=== PATIENT | female | born 1940 | race African-American/Black ===

== ENCOUNTER 2017-01-27 17:09 | Observation (INO) | payer MEDICARE ==
--- NOTE | 2017-01-27 17:55 | PDOC ---
History of Present Illness - General Chief Complaint: Lightheaded Stated Complaint: FATIGUE Time Seen by Provider: 01/27/17 17:31 - History of Present Illness Initial Comments: 01/27/17 18:08 The patient is a 76 year old female with a history of HTN, right breast CA, DM, asthma, and anemia who presents for evaluation following a pre-syncopal episode. The patient reports that she developed a left sided mild left sided headache earlier today. She reports that then while at a gas station, she felt extremely lightheaded and dizzy and had to grab onto her car prompting her presentation to the ED today. She denies any LOC during this episode however. She denies fevers, chills, SOB, chest pain, nausea, vomiting, abdominal pain, or changes with urination or bowel movements. Past History - Past Medical History Allergies/Adverse Reactions: Allergies Allergy/AdvReac Type Severity Reaction Status Date / Time No Known Drug Allergies Allergy Verified 01/27/17 17:26 Home Medications: Ambulatory Orders Aspirin [ASA -] 81 mg PO DAILY 01/27/17 Atorvastatin Ca [Lipitor] 10 mg PO HS 01/27/17 Losartan Potassium 100 mg PO DAILY 01/27/17 Anemia: Yes Asthma: Yes Cancer: Yes (R BREAST) Cardiac Disorders: No CVA: No COPD: No CHF: No Dementia: No Diabetes: Yes (CONTROLLED WITH DIET/EXERCISE) GI Disorders: No Disorders: No HTN: Yes Hypercholesterolemia: No Liver Disease: No Seizures: No Thyroid Disease: No - Surgical History Abdominal Surgery: Yes Appendectomy: Yes Cardiac Surgery: No Cholecystectomy: Yes Lung Surgery: No Neurologic Surgery: No Orthopedic Surgery: No - Suicide/Smoking/Psychosocial Hx Smoking Status: No Smoking History: Never smoked Have you smoked in the past 12 months: No Number of Cigarettes Smoked Daily: 0 Information on smoking cessation initiated: No Hx Alcohol Use: No Drug/Substance Use Hx: No Substance Use Type: None Hx Substance Use Treatment: No Review of Systems - Review of Systems Comments:: 01/27/17 18:20 Constitutional: Fatigue. No fevers, chills, malaise HEENT: No Rhinorrhea, nasal congestion, visual changes Cardiovascular: Pre-syncope. No chest pain, palpitations, lightheadedness Respiratory: No Cough, SOB, Hemoptysis, Gastrointestinal: No Abdominal pain, Nausea, Vomiting, Constipation, Diarrhea, Melena Genitourinary: No Dysuria, Frequency, Urgency, Hesitancy, Hematuria, Flank pain Musculoskeletal: No Myalgia, arthralgia Skin: No rashes, bruising, pallor Neurologic: Headache. No Dizziness, Numbness, Weakness, or Tingling Psychiatric: No Hallucinations. No SI or HI *Physical Exam - Vital Signs Last Vital Signs Temp Pulse Resp BP Pulse Ox 97.8 F 76 19 190/125 98 01/27/17 17:22 01/27/17 17:22 01/27/17 17:22 01/27/17 17:22 01/27/17 17:22 - Physical Exam Comments: 01/27/17 18:21 General Appearance: Nourished. No Apparent Distress HEENT: EOMI, JULIA. No Pharyngeal Erythema, Tonsillar Exudate, Tonsillar Erythema Neck: No Cervical Lymphadenopathy Respiratory/Chest: Lungs Clear, Normal Breath Sounds. No Crackles, Rales, Rhonchi, Wheezing Cardiovascular: Regular Rhythm, Regular Rate. 2/6 Systolic murmur noted on exam. No Gallops, Rubs Gastrointestinal/Abdominal: Normal Bowel Sounds, Soft. No Guarding, Rebound, Tenderness Musculoskeletal: No CVA Tenderness Extremity: Normal Capillary Refill Integumentary: Normal Color, Dry, Warm Neurologic: leaflet distributor II-XII NML intact, Fully Oriented, Alert, Normal Mood/Affect, Normal Response, Motor Strength 5/5. Normal Finger to Nose and Heel to Doty ED Treatment Course - LABORATORY CBC & Chemistry Diagram: 01/27/17 18:00 01/27/17 18:00 Medical Decision Making - Medical Decision Making 01/27/17 18:26 The patient is a 76 year old female with a history of HTN, right breast CA, DM, asthma, and anemia who presents for evaluation following a pre-syncopal episode. Differential includes but is not limited to: Intracranial bleed, temporal arteritis, shingles, acs, infectious, metabolic derangement. The patient noted that her headache was in the same distribution as shingles she had 3 year prior although there are no signs of active shingles on exam. Given her headache preceeded the patient's pre-syncopal episode, we will obtain a head ct to evaluate for intracranial process. We will also obtain a cbc, cmp, troponin, esr, ua, ekg to evaluate for other etiologies. We will continue to monitor and reassess. 01/27/17 19:[address] Akers and Dr. Ruiz is weapons system instrument mechanic, awaiting call back to discuss the plan. 01/27/17 19:06 cbc, cmp, troponin are unremarkable at this time. Patient is pending a head ct however, given her pre-syncopal episode and comorbidities, we believe the patient requires tele obs admission for further management. We discussed the case with Dr. Ruiz who agreed with the plan for admission to Dr. Akers. *DC/Admit/Observation/Transfer Diagnosis at time of Disposition: Pre-syncope - Discharge Dispostion Condition at time of disposition: Stable Admit: Yes - Referrals - Patient Instructions - Post Discharge Activity
[2017-01-27 18:13] LABS: BASOPHIL 0.3 % (0-2.0); EOSINOPHIL 2.5 % (0-4.5); MCH 27.7 pg (25.7-33.7); MCHC 32.8 g/dl (32.0-36.0); MEAN CELL VOLUME 84.6 fl (80-96); NEUTROPHILS 58.6 % (42.8-82.8); PLATELET COUNT 134 K/MM3 (134-434); RDW 15.9 % (11.6-15.6); WHITE BLOOD COUNT 3.4 K/mm3 (4.0-10.0)
[2017-01-27 18:36] LABS: ALBUMIN 3.6 g/dl (3.4-5.0); ANION GAP 7 (8-16); BILIRUBIN,TOTAL 0.4 mg/dL (0.2-1.0); CALCIUM 8.6 mg/dL (8.5-10.1); CO2 29 mmol/L (21-32); GLUCOSE,RANDOM 94 mg/dL (74-106); SGOT/AST 16 U/L (15-37); SGPT/ALT 18 U/L (12-78); TOT PROT 7.2 g/dl (6.4-8.2)
[2017-01-27 18:39] LABS: ALK PHOS 84 U/L (45-117); CPK 149 IU/L (26-192); TROPONIN I < 0.02 ng/ml (0.00-0.05)
--- NOTE | 2017-01-27 19:23 | PDOC ---
Attending Attestation - Resident Resident Name: AmyBolivar - ED Attending Attestation I have performed the following: I have examined & evaluated the patient, The case was reviewed & discussed with the resident, I agree w/resident's findings & plan, Exceptions are as noted - HPI HPI: 01/27/17 19:18 76 F with h/o 01/27/17 19:23 76 yo F with h/o HTN prior breast ca, DM asthma and anemia, here wtih c/o feeling lighteaded. pt was at gas station earlier today, had headach and suddenly felt lightheaded. denies vertigo sxs or sense of motion ( although has had in the past ). states felt like she was going to faint. closed eyes, and sat down. no loc. no cp no palpitation at the time. denies f/c n/v. no chest pain. does have urinary frequency however. no dysuria. no focal weakness. sees. dr mohr. has not seen a stretching machine operator in many years. - Physicial Exam PE: 01/27/17 19:20 awake alert lungs clear bilaterally, heart rrr no mrg.abd soft nt nd. ext wwp. skin warm no rash. nuero alert oriented x 3. 5/5 all four ext. finger to nose normal. heel to weiss normal. alt hand movement normal. CN intact. 01/27/17 19:25 - Medical Decision Making 01/27/17 19:21 76 yo F with h/o HLD DM HTN here wtih c/o feeling lightheaded. differential anemi, dehydration, electrolyte abnormality. dysrhymia. plan labs cxr ekg pt ptt trop. will admit to obtain cardiac workup. due to h/o breast ca and headache. will add esr and head ct. 01/27/17 19:26
[2017-01-27 20:03] LABS: URINE APPEARANCE CLEAR; URINE BILIRUBIN NEGATIVE (NEGATIVE); URINE BLOOD NEGATIVE (NEGATIVE); URINE COLOR STRAW; URINE GLUCOSE (UA) NEGATIVE (NEGATIVE); URINE KETONE NEGATIVE (NEGATIVE); URINE NITRITE NEGATIVE (NEGATIVE); URINE PROTEIN NEGATIVE (NEGATIVE); URINE UROBILINOGEN NEGATIVE mg/dL (0.2-1.0)
[2017-01-27] MEDS ORDERED: amLODIPine BESYLATE 5 MG TABLET (FP) PO ONE (22:06)
[2017-01-27] MEDS ORDERED: amLODIPine BESYLATE 5 MG TABLET (FP) ONE (22:07)
[2017-01-28 00:49] VITALS: BMI 23.3
[2017-01-28 07:34] LABS: BASOPHIL 0.4 % (0-2.0); EOSINOPHIL 4.6 % (0-4.5); MCH 27.5 pg (25.7-33.7); MCHC 32.8 g/dl (32.0-36.0); MEAN CELL VOLUME 83.8 fl (80-96); MEAN PLT VOLUME 9.5 fl (7.5-11.1); NEUTROPHILS 48.7 % (42.8-82.8); PLATELET COUNT 122 K/MM3 (134-434); RDW 15.6 % (11.6-15.6); WHITE BLOOD COUNT 3.7 K/mm3 (4.0-10.0)
[2017-01-28 08:19] LABS: ALBUMIN 3.4 g/dl (3.4-5.0); ANION GAP 7 (8-16); CALCIUM 8.2 mg/dL (8.5-10.1); CO2 27 mmol/L (21-32); CREATININE 0.8 mg/dL (0.55-1.02); GLUCOSE,RANDOM 83 mg/dL (74-106); SGOT/AST 15 U/L (15-37); SGPT/ALT 17 U/L (12-78)
[2017-01-28 08:20] LABS: ALK PHOS 74 U/L (45-117); BILIRUBIN,TOTAL 0.6 mg/dL (0.2-1.0); TOT PROT 6.6 g/dl (6.4-8.2)
[2017-01-28] MEDS ORDERED: PNEUMOC 13-VAL CONJ-DIP CRM/PF 0.5 ML DISP.SYRIN IM ONE (09:00)
[2017-01-28] MEDS: LOSARTAN POTASSIUM 100 MG TABLET PO SCH (10:22)
[2017-01-28] MEDS: ASPIRIN 81 MG CHEWABLE TABLETS PO SCH (10:22)
--- NOTE | 2017-01-28 11:19 | CONSULT ---
Consult - text type - Consultation Consultation Note: Neurology The patient is a 76 year old female with a history of HTN, right breast CA, DM, asthma, and anemia who presents for evaluation following a syncopal tyoe episode. The patient reports that she developed a left sided mild left sided headache then while at a gas station, she felt extremely lightheaded and dizzy and had to grab onto her car prompting her presentation to the ED. She denies any LOC during this episode however. She denies fevers, chills, SOB, chest pain , nausea, vomiting, abdominal pain, or changes with urination or bowel movements. She completed CT head which did not show acute changes. She is under telemetry monitoring and mental status is intact. Patient awake, alert, responsive, cognitively interactive and mentating well. Does not have any focal deficits. SLight tension headache which has improved. Past History - Past Medical History Allergies/Adverse Reactions: Allergies Allergy/AdvReac Type Severity Reaction Status Date / Time No Known Drug Allergies Allergy Verified 01/27/17 17:26 Home Medications: Ambulatory Orders Aspirin [ASA -] 81 mg PO DAILY 01/27/17 Atorvastatin Ca [Lipitor] 10 mg PO HS 01/27/17 Losartan Potassium 100 mg PO DAILY 01/27/17 Anemia: Yes Asthma: Yes Cancer: Yes (R BREAST) Cardiac Disorders: No CVA: No COPD: No CHF: No Dementia: No Diabetes: Yes (CONTROLLED WITH DIET/EXERCISE) GI Disorders: No Disorders: No HTN: Yes Hypercholesterolemia: No Liver Disease: No Seizures: No Thyroid Disease: No - Surgical History Abdominal Surgery: Yes Appendectomy: Yes Cardiac Surgery: No Cholecystectomy: Yes Lung Surgery: No Neurologic Surgery: No Orthopedic Surgery: No - Suicide/Smoking/Psychosocial Hx Smoking Status: No Smoking History: Never smoked Have you smoked in the past 12 months: No Number of Cigarettes Smoked Daily: 0 Information on smoking cessation initiated: No Hx Alcohol Use: No Drug/Substance Use Hx: No Substance Use Type: None Hx Substance Use Treatment: No Review of Systems Constitutional: Fatigue. No fevers, chills, malaise HEENT: No Rhinorrhea, nasal congestion, visual changes Cardiovascular: Pre-syncope. No chest pain, palpitations, lightheadedness Respiratory: No Cough, SOB, Hemoptysis, Gastrointestinal: No Abdominal pain, Nausea, Vomiting, Constipation, Diarrhea, Melena Genitourinary: No Dysuria, Frequency, Urgency, Hesitancy, Hematuria, Flank pain Musculoskeletal: No Myalgia, arthralgia Skin: No rashes, bruising, pallor Neurologic: Headache. No Dizziness, Numbness, Weakness, or Tingling Psychiatric: No Hallucinations. No SI or HI *Physical Exam Vital Signs Temperature 98.1 F 01/28/17 06:00 Pulse Rate 66 01/28/17 06:00 Respiratory Rate 18 01/28/17 06:00 Blood Pressure 135/90 01/28/17 06:00 O2 Sat by Pulse Oximetry (%) 99 01/28/17 00:30 General Appearance: Nourished. No Apparent Distress HEENT: EOMI, JULIA. No Pharyngeal Erythema, Tonsillar Exudate, Tonsillar Erythema Neck: No Cervical Lymphadenopathy Respiratory/Chest: Lungs Clear, Normal Breath Sounds. No Crackles, Rales, Rhonchi, Wheezing Cardiovascular: Regular Rhythm, Regular Rate. 2/6 Systolic murmur noted on exam. No Gallops, Rubs Gastrointestinal/Abdominal: Normal Bowel Sounds, Soft. No Guarding, Rebound, Tenderness Musculoskeletal: No CVA Tenderness Extremity: Normal Capillary Refill Integumentary: Normal Color, Dry, Warm Neurologic: regional safety manager II-XII NML intact, Fully Oriented, Alert, Normal Mood/Affect, Normal Response, Motor Strength 5/5. Normal Finger to Nose and Heel to Doty CBCD WBC 3.7 K/mm3 (4.0-10.0) L 01/28/17 07:15 RBC 4.21 M/mm3 (3.60-5.2) 01/28/17 07:15 Hgb 11.6 GM/dL (10.7-15.3) 01/28/17 07:15 Hct 35.3 % (32.4-45.2) 01/28/17 07:15 MCV 83.8 fl (80-96) 01/28/17 07:15 MCHC 32.8 g/dl (32.0-36.0) 01/28/17 07:15 RDW 15.6 % (11.6-15.6) 01/28/17 07:15 Plt Count 122 K/MM3 (134-434) L 01/28/17 07:15 MPV 9.5 fl (7.5-11.1) 01/28/17 07:15 CMP Sodium 142 mmol/L (136-145) 01/28/17 07:15 Potassium 3.2 mmol/L (3.5-5.1) L 01/28/17 07:15 Chloride 108 mmol/L (98-107) H 01/28/17 07:15 Carbon Dioxide 27 mmol/L (21-32) 01/28/17 07:15 Anion Gap 7 (8-16) L 01/28/17 07:15 BUN 13 mg/dL (7-18) D 01/28/17 07:15 Creatinine 0.8 mg/dL (0.55-1.02) 01/28/17 07:15 Creat Clearance w eGFR > 60 (>60) 01/28/17 07:15 Calcium 8.2 mg/dL (8.5-10.1) L 01/28/17 07:15 Total Bilirubin 0.6 mg/dL (0.2-1.0) D 01/28/17 07:15 AST 15 U/L (15-37) 01/28/17 07:15 ALT 17 U/L (12-78) 01/28/17 07:15 Alkaline Phosphatase 74 U/L (45-117) 01/28/17 07:15 Total Protein 6.6 g/dl (6.4-8.2) 01/28/17 07:15 Albumin 3.4 g/dl (3.4-5.0) 01/28/17 07:15 Ct head reviewed Medical Decision Making 76 year old female with a history of HTN, right breast CA, DM, asthma, and anemia who presents for evaluation following a syncopal tyoe episode. The patient reports that she developed a left sided mild left sided headache then while at a gas station, she felt extremely lightheaded and dizzy and had to grab onto her car prompting her presentation to the ED. She denies any LOC during this episode however. She denies fevers, chills, SOB, chest pain, nausea , vomiting, abdominal pain, or changes with urination or bowel movements. She completed CT head which did not show acute changes. She is under telemetry monitoring and mental status is intact. Cardiology followup recommended Continue ASA and Statin for CVA prevention Monitor BP, maintain < 140/90 Does not require further imaging as she has no focal deficits CT head was within normal limits Slight tension headache which has improved Maintain adequate hydration and PO intake No further rec'd at this time
--- NOTE | 2017-01-28 14:39 | HP ---
Admitting History and Physical - Primary Care Physician PCP: Venus Akers - Admission Chief Complaint: Presyncope History of Present Illness: 76 yo F with h/o HTN prior breast ca, DM asthma and anemia, here wtih c/o feeling lighteaded. pt was at gas station earlier today, had headach and suddenly felt lightheaded. denies vertigo sxs or sense of motion ( although has had in the past ). states felt like she was going to faint. closed eyes, and sat down. no loc. no cp no palpitation at the time. denies f/c n/v. no chest pain. does have urinary frequency however. no dysuria. no focal weakness. - Past Medical History ...: No - Smoking History Smoking history: Never smoked Have you smoked in the past 12 months: No Aproximately how many cigarettes per day: 0 - Alcohol/Substance Use Hx Alcohol Use: No Home Medications - Allergies Allergies/Adverse Reactions: Allergies Allergy/AdvReac Type Severity Reaction Status Date / Time No Known Drug Allergies Allergy Verified 01/27/17 17:26 - Home Medications Home Medications: Ambulatory Orders Aspirin [ASA -] 81 mg PO DAILY 01/27/17 Atorvastatin Ca [Lipitor] 10 mg PO HS 01/27/17 Losartan Potassium 100 mg PO DAILY 01/27/17 Review of Systems - Review of Systems Constitutional: reports: No Symptoms HENT: reports: No Symptoms Neck: reports: No Symptoms Cardiovascular: reports: Other (syncope). denies: Edema, Palpitations, Shortness of Breath Respiratory: denies: Cough, Exercise Intolerance Gastrointestinal: denies: Abdominal Pain, Bloating, Constipation Genitourinary: denies: Burning, Discharge, Dysuria Musculoskeletal: denies: Back Pain, Crepitus, Decreased ROM Integumentary: denies: Blister, Bruising, Change in Color Neurological: reports: Change in LOC, Syncope Physical Examination Vital Signs: Vital Signs Temperature 98.1 F 01/28/17 10:00 Pulse Rate 80 01/28/17 10:00 Respiratory Rate 18 01/28/17 10:00 Blood Pressure 160/100 01/28/17 10:00 O2 Sat by Pulse Oximetry (%) 99 01/28/17 10:00 Elderly F looks comfortable npo complaints HEENT: MM moist, no anemia, PERRLA, EOMI NECK; No JVD No Bruit, Thyroid Central CHEST: CTA B/L CVS: S1S2 R no m/g/r ABD: No distention, non tender BS + EXT: Trace edema feet, no calf tenderness, Pulses + DROSOPHERE OPERATOR: AOX3 non focal Labs: CBC, BMP 01/28/17 07:15 01/28/17 07:15 Imaging - Results X-ray: Report Reviewed (Normal) Cat Scan: Report Reviewed (Normal) Problem List - Problems (1) Pre-syncope Assessment/Plan: Most likely Neurocardiogenic will F/U ECHO Doppler, Carotid Doppler, Neurology and cardiology recommendations, no acute St T changes in EKG>, tele monitor. Code(s): R55 - SYNCOPE AND COLLAPSE (2) HTN (hypertension) Assessment/Plan: Present with uncontrolled HTN will add amlodipine, optimize BP control. Code(s): I10 - ESSENTIAL (PRIMARY) HYPERTENSION (3) Hypercholesterolemia Assessment/Plan: H/O High cholesterol cont Statin. Code(s): E78.00 - PURE HYPERCHOLESTEROLEMIA, UNSPECIFIED
[2017-01-28] MEDS: amLODIPine BESYLATE 5 MG TABLET (FP) PO SCH (14:52)
[2017-01-28 15:47] LABS: URINE LEUK ESTERASE Negative (NEGATIVE)
[2017-01-28 16:51] LABS: CHOLESTEROL 169 mg/dL (50-200)
[2017-01-28] MEDS ORDERED: POTASSIUM CHLORIDE TABS 20 MEQ TABLET.ER (FP) PO ONE (18:00)
[2017-01-28] MEDS: ATORVASTATIN CA 10 MG TABLET (FP) PO SCH (21:24)
[2017-01-29 07:20] LABS: ALBUMIN 3.2 g/dl (3.4-5.0); ALK PHOS 81 U/L (45-117); ANION GAP 5 (8-16); BILIRUBIN,TOTAL 0.4 mg/dL (0.2-1.0); CALCIUM 8.1 mg/dL (8.5-10.1); CO2 28 mmol/L (21-32); CREATININE 0.9 mg/dL (0.55-1.02); GLUCOSE,RANDOM 85 mg/dL (74-106); SGOT/AST 15 U/L (15-37); SGPT/ALT 17 U/L (12-78); TOT PROT 6.6 g/dl (6.4-8.2)
[2017-01-29] MEDS: amLODIPine BESYLATE 5 MG TABLET (FP) PO SCH (09:14)
[2017-01-29] MEDS: ASPIRIN 81 MG CHEWABLE TABLETS PO SCH (09:14)
[2017-01-29] MEDS: LOSARTAN POTASSIUM 50 MG TABLET (FP) PO SCH (11:25)
[2017-01-29] MEDS: LOSARTAN POTASSIUM 100 MG TABLET PO SCH (11:25)
--- NOTE | 2017-01-29 13:39 | PN ---
Progress Note, Physician Chief Complaint: Asymptomatic no complaints - Current Medication List Current Medications: Active Medications Amlodipine Besylate (Norvasc -) 5 mg PO DAILY [facility] Last Admin: 01/29/17 09:14 Dose: 5 mg Aspirin (Asa -) 81 mg PO DAILY [facility] [place] Last Admin: 01/29/17 09:14 Dose: 81 mg Atorvastatin Calcium (Lipitor -) 10 mg PO HS [facility] [place] Last Admin: 01/28/17 21:24 Dose: 10 mg Losartan Potassium (Cozaar -) 100 mg PO DAILY [facility] [place] Last Admin: 01/29/17 11:25 Dose: 100 mg - Objective Vital Signs: Vital Signs Temperature 98.5 F 01/29/17 08:07 Pulse Rate 77 01/29/17 08:07 Respiratory Rate 18 01/29/17 08:09 Blood Pressure 141/90 01/29/17 08:07 O2 Sat by Pulse Oximetry (%) 98 01/29/17 08:09 Elderly F looks comfortable C HEENT: MM moist, no anemia, PERRLA, EOMI NECK; No JVD No Bruit, Thyroid Central CHEST: CTA B/L CVS: S1S2 R no m/g/r ABD: No distention, non tender BS + EXT: No edema feet, no calf tenderness, Pulses + PREFITTER DOORS: AOX3 non focal Labs: CBC, BMP 01/28/17 07:15 01/29/17 05:00 Problem List - Problems (1) Pre-syncope Assessment/Plan: Most likely Neurocardiogenic will F/U ECHO Doppler Code(s): R55 - SYNCOPE AND COLLAPSE (2) HTN (hypertension) Assessment/Plan: Well controlled on current medication Code(s): I10 - ESSENTIAL (PRIMARY) HYPERTENSION (3) Hypercholesterolemia Assessment/Plan: H/O High cholesterol cont Statin. Code(s): E78.00 - PURE HYPERCHOLESTEROLEMIA, UNSPECIFIED (4) Hypokalemia Assessment/Plan: resolved Code(s): E87.6 - HYPOKALEMIA
--- NOTE | 2017-01-29 13:43 | CONS ---
DATE OF CONSULTATION: 01/28/2017 CARDIOLOGY CONSULTATION CONSULTATION REQUESTED BY: Venus Akers MD LOCATION: 4 Telemetry. HISTORY OF PRESENT ILLNESS: This is a 76-year-old female with a longstanding history of hypertension, hypercholesterolemia who came to the hospital with a history of sudden onset of light-headedness and a feeling of near syncope while she was standing at a gas station. Her symptoms persisted for approximately 5 minutes with progressively decreasing in its intensity. She sat in the car until her symptoms abated and decided to drive home. On her way she changed her mind and came to the emergency room. While she was there she was found to have accelerated hypertension. The patient states that she had a transient episode of sharp left temporal discomfort earlier in the day lasting seconds without having any recurrence. On questioning, she has intermittent occipital headaches for the last 1 to 2 months which occurred at different times in the day. During the episode of light-headedness she denies having nausea, vomiting, palpitations, or diaphoresis. There is no history of chest pain or discomfort either at rest or with exertion, no exertional dyspnea, paroxysmal nocturnal dyspnea or orthopnea, and no history of palpitations. There is a history of vertigo; the last episode was in the early part of this year which required hospitalization. The patient states at that time she had severe dizziness with the room spinning associated with nausea. PAST MEDICAL HISTORY: 1. As mentioned in the history of present illness. 2. History of herpes zoster involving the left side of the face and left eye causing transient blindness. 3. History of right breast carcinoma. 4. Status post cholecystectomy. 5. Status post ? removal of a benign cyst around the left kidney. 6. Status post left cataract extraction. 7. Status post hysterectomy and oophorectomy. 8. Status post right breast lumpectomy followed by chemotherapy and radiation. SOCIAL HISTORY: She is a retired nurse, is . She has 2 sons and 2 daughters who are healthy. She is a nonsmoker and does not drink alcohol. FAMILY HISTORY: Father at the age of 49 related to a stroke. There was no known history of hypertension. Mother at 56; she had rheumatic fever as a child and of complications of rheumatic heart disease. She had 2 brothers and 5 sisters; both brothers are and the cause of their demise is not known. Two of her sisters have hypertension. ALLERGIES: None reported. MEDICATIONS: 1. Losartan 100 mg p.o. daily. 2. Lipitor 10 mg p.o. daily. 3. Aspirin 81 mg p.o. daily. 4. Hydrochlorothiazide 12.5 mg but the patient does not take it as prescribed. REVIEW OF SYSTEMS: Constitutional: No history of chills, fever or night sweats. No history of unintentional weight loss. HEENT: History of intermittent occipital headaches and see history of present illness. No history of diplopia or blurred vision. No history of epistaxis, hoarseness, tinnitus, or deafness reported. Cardiovascular: No history of chest pain or discomfort. No history of palpitations. Respiratory: No history of cough, expectoration of hemoptysis. History of an episode of wheezing when she stepped out in the cold; there has been no recurrence. No history of tuberculosis. Gastrointestinal: History of a left upper quadrant dull ache starting approximately 2 months ago. It is intermittent and may last a few minutes to several hours. No history of nausea, vomiting, melanoma, or hematemesis. No history of change in bowel habits. Neurologic: No history of seizures or syncope. See history of present illness. No history of focal weakness. Endocrine: No history of polyuria or polydipsia. History of intolerance to cold weather. Musculoskeletal: History of generalized osteoarthritis. No history of myalgias. Genitourinary: History of stress incontinence. No history of hematuria, history of urgency. No history of nephrolithiasis. Hematological: No history of ecchymosis, bleeding or anemia. PHYSICAL EXAMINATION: General: A 76-year-old alert female who was in no acute distress, no pallor, cyanosis, clubbing, or jaundice. Vital Signs: Last blood pressure was 190/110 mmHg. On admission blood pressure was 190/125 mmHg. Pulse was 54 beats per minute and regular. Respirations are 16 per minute. Weight 130 pounds. Neck: Supple, no jugular venous distension, carotids were 2+, upstrokes were normal, no bruits were heard, and no thyromegaly was present. Heart: PMI was in the 5th intercostal space, no heaves or thrills. S1 and S2 were normal. Ejection systolic murmur grade 2/6 was heard at the second right intercostal space ending in early systole. No diastolic murmur or gallops were heard. Lungs: Clear on auscultation. Chest: Normal AP diameter, expansion was symmetrical. Abdomen: Soft, protuberant and nontender. No hepatosplenomegaly or palpable masses were felt. Bowel sounds were active, no bruits were heard. Extremities: No calf tenderness of dependent edema, pulses were equal. DIAGNOSTIC DATA: CT scan of the head without contrast; no intracranial hemorrhage is seen. In comparison to the 2015 CT scan, interval development of her chronic right parietal cortical infarct is noted. Possible focal extra sclerotic dilatation of the left supraclinoid internal carotid artery was just likely representing a 0.7 and a 2.5-cm aneurysm. The appearance is probably unchanged since the prior CT scan examination. Correlation with MR. or CT angiogram is suggested non-emergent versus emergent as clinically indicated. IMPRESSION: No acute pathology. No significant change since April 06, 2015. LABORATORY DATA: December 28, 2016; sodium 142, potassium 3.2, chloride 108, and CO2 27, . BUN 13, creatinine 0.8 mg/dL, calcium 8.2 mg/dL. Normal liver function tests. Her CK on January 27, 2017 was 149, troponin less than 1.002. BNP 220.59. Hematology. On January 28, 2017 WBC count 3,700, platelet count 122,000, hemoglobin 11.6 g/dL, hematocrit 35.3%. ESR 20. Slightly elevated eosinophils. IMPRESSION: 1. Recent onset of light-headedness and a feeling of near syncope are most likely related to accelerated hypertension. 2. The recurring occipital headaches are related to hypertension. 3. History of hypercholesterolemia. 4. Systolic murmur is most likely related to aortic valve sclerosis, aortic stenosis needs to be excluded. 5. History of peripheral neuropathy. 6. Hypokalemia. 7. Status post right breast carcinoma. 8. Right upper quadrant discomfort etiology to be determined. 9. 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 10. Leukopenia and thrombocytopenia. Etiology to be determined. 11. Hypokalemia. 12. Peripheral neuropathy. RECOMMENDATIONS: 1. Correction of serum potassium, 5 mg p.o. daily and titrate dose as necessary. 2. Consider carotid artery CTA or MRA. 3. Follow up CBC and if the patient has ongoing leukopenia and thrombocytopenia, a hematologic evaluation. 4. Echocardiogram. 5. Close monitoring of blood pressure and further titration of therapy. The patient may require a GI evaluation of ongoing left upper quadrant discomfort. 6. The patient was strongly counseled regarding her dietary restrictions including curtailing salt intake and to monitor her blood pressure on a regular basis. 7. Further suggestions as necessary. Thank you for your referral. MONCHO HERNANDEZ M.D. [id number]
[2017-01-29] MEDS: ATORVASTATIN CA 10 MG TABLET (FP) PO SCH (21:32)
--- NOTE | 2017-01-29 22:58 | PN ---
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 Poor comliance, Known case of hypertension and hypercholesterolemia. Since adjusting her medication patient is normotensive, tolerating the medications Active Medications Amlodipine Besylate (Norvasc -) 5 mg PO DAILY [facility] Last Admin: 01/29/17 09:14 Dose: 5 mg Aspirin (Asa -) 81 mg PO DAILY [facility] Last Admin: 01/29/17 09:14 Dose: 81 mg Atorvastatin Calcium (Lipitor -) 10 mg PO HS [facility] Last Admin: 01/29/17 21:32 Dose: 10 mg Losartan Potassium (Cozaar -) 100 mg PO DAILY [facility] Last Admin: 01/29/17 11:25 Dose: 100 mg 76 year old female in no acute distress, no pallor, cyanosis, jaundiceor clubbing. Last Vital Signs Temp Pulse Resp BP Pulse Ox 98.7 F 66 18 136/83 98 01/29/17 20:12 01/29/17 20:12 01/29/17 21:00 01/29/17 20:12 01/29/17 21:00 NECK: Supple, noJVD, carotids 2+, no bruits heard and no thyromegaly HEART: PMI in the 5th ICS, no heave or thrills. Grade II/ JOHNATHON at the 2nd ICS. NOdiastolic murmur or gallops heard. LUNGS: Clear, decreased breath sounds at both bases. Abdomen: Soft, obese, nontender, no organomegaly or masses felt. CBC, BMP 01/28/17 07:15 01/29/17 05:00 A: 1. Poorly controlled Hypertension. 2. Hypertension, 3. Hypercholesteolermia. 4. Near syncope, secondary to uncontrolled BP. 5. Hypertension. RECOMMENDATIONS: !. Continue therapy. 2. Continue monitoring hypertension.
[2017-01-30 07:32] LABS: ANION GAP 6 (8-16); CO2 26 mmol/L (21-32); CREATININE 0.8 mg/dL (0.55-1.02); GLUCOSE,RANDOM 91 mg/dL (74-106)
[2017-01-30 07:52] LABS: BASOPHIL 0.5 % (0-2.0); EOSINOPHIL 4.2 % (0-4.5); MCH 27.3 pg (25.7-33.7); MCHC 32.4 g/dl (32.0-36.0); MEAN CELL VOLUME 84.2 fl (80-96); MEAN PLT VOLUME 9.8 fl (7.5-11.1); NEUTROPHILS 49.4 % (42.8-82.8); PLATELET COUNT 120 K/MM3 (134-434); RDW 15.4 % (11.6-15.6); WHITE BLOOD COUNT 4.1 K/mm3 (4.0-10.0)
[2017-01-30 07:55] VITALS: BP 159/94; PULSE 64; TEMP 98.3
[2017-01-30] MEDS: amLODIPine BESYLATE 5 MG TABLET (FP) PO SCH (09:16)
[2017-01-30] MEDS: LOSARTAN POTASSIUM 50 MG TABLET (FP) PO SCH (09:16)
[2017-01-30] MEDS: ASPIRIN 81 MG CHEWABLE TABLETS PO SCH (09:16)
--- NOTE | 2017-01-30 09:33 | DS ---
Physical Examination Vital Signs: Vital Signs Temperature 98.3 F 01/30/17 07:54 Pulse Rate 64 01/30/17 07:54 Respiratory Rate 18 01/30/17 08:08 Blood Pressure 159/94 01/30/17 07:54 O2 Sat by Pulse Oximetry (%) 98 01/30/17 08:08 Constitutional: Yes: No Distress Eyes: Yes: WNL HENT: Yes: WNL Neck: Yes: WNL Cardiovascular: Yes: WNL Respiratory: Yes: WNL Gastrointestinal: Yes: WNL ...Rectal Exam: Yes: Deferred Renal/: Yes: WNL Breast(s): Yes: WNL Musculoskeletal: Yes: WNL Edema: No Peripheral Pulses WNL: Yes Labs: CBC, BMP 01/30/17 05:10 01/30/17 05:10 Discharge Summary Reason For Visit: PRE SYNCOPE Current Active Problems HTN (hypertension) (Acute) Hypercholesterolemia (Acute) Hypokalemia (Acute) Pre-syncope (Acute) Condition: Stable - Instructions Referrals: Venus Akers MD [Primary Care Provider] - - Home Medications Comprehensive Discharge Medication List: Ambulatory Orders Aspirin [ASA -] 81 mg PO DAILY 01/27/17 Atorvastatin Ca [Lipitor] 10 mg PO HS 01/27/17 Losartan Potassium 100 mg PO DAILY 01/27/17
--- NOTE | 2017-01-30 09:42 | PN ---
Progress Note (short form) - Note Progress Note: Neurology The patient is a 76 year old female with a history of HTN, right breast CA, DM, asthma, and anemia who presents for evaluation following a syncopal tyoe episode. The patient reports that she developed a left sided mild left sided headache then while at a gas station, she felt extremely lightheaded and dizzy and had to grab onto her car prompting her presentation to the ED. She denies any LOC during this episode however. She denies fevers, chills, SOB, chest pain , nausea, vomiting, abdominal pain, or changes with urination or bowel movements. She completed CT head which did not show acute changes. She is under telemetry monitoring and mental status is intact. Patient awake, alert, responsive, cognitively interactive and mentating well. Does not have any focal deficits. SLight tension headache which has improved. Was also mentioning her neuropathy and discussed patient having outpatient follow up and she was in agreement. Neuropathy possibly from chemo but may benefit from further workup. Patient has been on neurotin in the past. We discussed lyrica and cymbalta as options as well. Active Medications Amlodipine Besylate (Norvasc -) 5 mg PO DAILY [facility] Last Admin: 01/30/17 09:16 Dose: 5 mg Aspirin (Asa -) 81 mg PO DAILY [facility] Last Admin: 01/30/17 09:16 Dose: 81 mg Atorvastatin Calcium (Lipitor -) 10 mg PO HS [facility] Last Admin: 01/29/17 21:32 Dose: 10 mg Losartan Potassium (Cozaar -) 100 mg PO DAILY [facility] Last Admin: 01/30/17 09:16 Dose: 100 mg *Physical Exam Vital Signs Temperature 98.3 F 01/30/17 07:54 Pulse Rate 64 01/30/17 07:54 Respiratory Rate 18 01/30/17 08:08 Blood Pressure 159/94 01/30/17 07:54 O2 Sat by Pulse Oximetry (%) 98 01/30/17 08:08 General Appearance: Nourished. No Apparent Distress HEENT: EOMI, JULIA. No Pharyngeal Erythema, Tonsillar Exudate, Tonsillar Erythema Neck: No Cervical Lymphadenopathy Respiratory/Chest: Lungs Clear, Normal Breath Sounds. No Crackles, Rales, Rhonchi, Wheezing Cardiovascular: Regular Rhythm, Regular Rate. 2/6 Systolic murmur noted on exam. No Gallops, Rubs Gastrointestinal/Abdominal: Normal Bowel Sounds, Soft. No Guarding, Rebound, Tenderness Musculoskeletal: No CVA Tenderness Extremity: Normal Capillary Refill Integumentary: Normal Color, Dry, Warm Neurologic: litigation attorney II-XII NML intact, Fully Oriented, Alert, Normal Mood/Affect, Normal Response, Motor Strength 5/5. Normal Finger to Nose and Heel to Doty CBCD WBC 4.1 K/mm3 (4.0-10.0) 01/30/17 05:10 RBC 4.23 M/mm3 (3.60-5.2) 01/30/17 05:10 Hgb 11.6 GM/dL (10.7-15.3) 01/30/17 05:10 Hct 35.6 % (32.4-45.2) 01/30/17 05:10 MCV 84.2 fl (80-96) 01/30/17 05:10 MCHC 32.4 g/dl (32.0-36.0) 01/30/17 05:10 RDW 15.4 % (11.6-15.6) 01/30/17 05:10 Plt Count 120 K/MM3 (134-434) L 01/30/17 05:10 MPV 9.8 fl (7.5-11.1) 01/30/17 05:10 CMP Sodium 142 mmol/L (136-145) 01/30/17 05:10 Potassium 3.6 mmol/L (3.5-5.1) 01/30/17 05:10 Chloride 110 mmol/L (98-107) H 01/30/17 05:10 Carbon Dioxide 26 mmol/L (21-32) 01/30/17 05:10 Anion Gap 6 (8-16) L 01/30/17 05:10 BUN 16 mg/dL (7-18) 01/30/17 05:10 Creatinine 0.8 mg/dL (0.55-1.02) 01/30/17 05:10 Creat Clearance w eGFR > 60 (>60) 01/29/17 05:00 Calcium 8.0 mg/dL (8.5-10.1) L 01/30/17 05:10 Total Bilirubin 0.4 mg/dL (0.2-1.0) D 01/29/17 05:00 AST 15 U/L (15-37) 01/29/17 05:00 ALT 17 U/L (12-78) 01/29/17 05:00 Alkaline Phosphatase 81 U/L (45-117) 01/29/17 05:00 Total Protein 6.6 g/dl (6.4-8.2) 01/29/17 05:00 Albumin 3.2 g/dl (3.4-5.0) L 01/29/17 05:00 Ct head reviewed Medical Decision Making 76 year old female with a history of HTN, right breast CA, DM, asthma, and anemia who presents for evaluation following a syncopal tyoe episode. The patient reports that she developed a left sided mild left sided headache then while at a gas station, she felt extremely lightheaded and dizzy and had to grab onto her car prompting her presentation to the ED. She denies any LOC during this episode however. She completed CT head which did not show acute changes. Continue ASA and Statin for CVA prevention Monitor BP, maintain < 140/90 Does not require further imaging as she has no focal deficits CT head was within normal limits Slight tension headache which has improved Maintain adequate hydration and PO intake Neuropathy evaluation may be of benefit as outpatient Patient given information for follow up No further rec'd at this time For discharge today
--- NOTE | 2017-01-30 11:40 | EKG ---
Test Reason : Blood Pressure : / mmHG Vent. Rate : 052 BPM Atrial Rate : 052 BPM P-R Int : 138 ms QRS Dur : 082 ms QT Int : 434 ms P-R-T Axes : 043 004 044 degrees QTc Int : 403 ms POOR DATA QUALITY, INTERPRETATION MAY BE ADVERSELY AFFECTED SINUS BRADYCARDIA LOW VOLTAGE QRS CANNOT RULE OUT INFERIOR INFARCT , AGE UNDETERMINED CANNOT RULE OUT ANTERIOR INFARCT (CITED ON OR BEFORE 05-NOV-2014) ABNORMAL ECG WHEN COMPARED WITH ECG OF 05-NOV-2014 17:11, NO SIGNIFICANT CHANGE WAS FOUND Confirmed by SONIA PAUL MD ([id number]) on 01/30/2017 11:40:11 AM Referred By: Confirmed By:SONIA PAUL MD
== END 2017-01-30 15:01 | disposition home or self-care (01) ==
LOC: JER 17:09 → JERBED 19:34 → J4W 23:23
PROVIDERS: ADMIT Internal Medicine; ATTEND Internal Medicine
PROC: 3E0234Z Introduction of Serum, Toxoid and Vaccine into Muscle, Percutaneous Approach (ICD-10-PCS; principal; 2017-01-27)
DX: R55 Syncope and collapse (principal); I10 Essential (primary) hypertension; E11.9 Type 2 diabetes mellitus without complications; E78.00 Pure hypercholesterolemia, unspecified; E87.6 Hypokalemia; J45.909 Unspecified asthma, uncomplicated; D64.9 Anemia, unspecified; Z85.3 Personal history of malignant neoplasm of breast; Z79.82 Long term (current) use of aspirin; Z23 Encounter for immunization
CPT/HCPCS: 36415; 70450-TC; 71010-TC; 80048; 80053; 80061; 81003; 82550; 83036; 83721; 83880; 84484; 85025; 85651; 87086; 90471; 90670; 93005; 93010; 93306-TC; 93880-TC; 99285-25; G0378

== ENCOUNTER 2017-02-27 10:04 | Day surgery (SDC) | payer MEDICARE ==
[2017-02-22 12:41] VITALS: BMI 23.8
[2017-02-27] MEDS ORDERED: PROPOFOL 20 ML ONE (10:53)
[2017-02-27] MEDS ORDERED: LIDOCAINE HCL/PF 2% SDV 5ML VIAL ONE (11:42)
[2017-02-27 11:46] VITALS: TEMP 98
[2017-02-27 12:04] VITALS: BP 130/76; PULSE 66
--- NOTE | 2017-02-28 10:11 | PATH ---
Surgical Pathology Report Patient Name: LILO QUINONES [facility]. Rec. #: [id number] /Age/Gender: 1940 (Age: 76) / F Account: [id number] Location: Taken: 02/27/2017 Received: 02/27/2017 Reported: 02/28/2017 Physicians: Rafal Dickey M.D. Specimen(s) Received A: RIGHT COLON B: MID RIGHT COLON Clinical History Preoperative diagnosis: Family history of colon polyps Postoperative diagnosis: Polyps Final Diagnosis A. COLON, RIGHT, BIOPSY: TUBULAR ADENOMA. B. COLON, MID RIGHT, BIOPSY: TUBULAR ADENOMA. Electronically Signed Tony Prather M.D. Gross Description A. Received in formalin, labeled "right colon" is a mccain, irregular portion of soft tissue measuring 0.6 cm. in greatest dimension. The specimen is submitted in toto in one cassette. B. Received in formalin, labeled "mid right colon" is a mccain, irregular portion of soft tissue measuring 0.3 cm. in greatest dimension. The specimen is submitted in toto in one cassette. 02/27/2017 [facility]02/27/2017
== END 2017-02-27 12:37 | disposition home or self-care (01) ==
LOC: FASU-ENDO 10:04
PROVIDERS: ATTEND Internal Medicine Gastroenterology
PROC: 0DBM8ZX Excision of Descending Colon, Via Natural or Artificial Opening Endoscopic, Diagnostic (ICD-10-PCS; 2017-02-27)
PROC: 0DBK8ZX Excision of Ascending Colon, Via Natural or Artificial Opening Endoscopic, Diagnostic (ICD-10-PCS; principal; 2017-02-27 11:09)
PROC: 0DBL8ZX Excision of Transverse Colon, Via Natural or Artificial Opening Endoscopic, Diagnostic (ICD-10-PCS; 2017-02-27 11:09)
DX: Z12.11 Encounter for screening for malignant neoplasm of colon (principal); Z80.0 Family history of malignant neoplasm of digestive organs; D12.2 Benign neoplasm of ascending colon; E78.00 Pure hypercholesterolemia, unspecified; I10 Essential (primary) hypertension; D12.4 Benign neoplasm of descending colon; D12.3 Benign neoplasm of transverse colon
CPT/HCPCS: 88305-TC

== ENCOUNTER 2017-08-21 20:09 | Observation (INO) | payer MEDICARE ==
--- NOTE | 2017-08-21 20:26 | PDOC ---
Rapid Medical Evaluation Time Seen by Provider: 08/21/17 20:18 Medical Evaluation: Allergies Allergy/AdvReac Type Severity Reaction Status Date / Time No Known Drug Allergies Allergy Verified 02/22/17 12:42 08/21/17 20:18 I have performed a brief in-person evaluation of this patient. The patient presents with a chief complaint of: dizziness this afternoon. Patient reports near syncope event today, with shortness of breath. Denies chest pain. Also reports pain to right shoulder that extended from right neck down arm Pertinent physical exam findings: NAD Lungs clear bilaterally non tender chest no pedal edema I have ordered the following: ekg, labs, saline The patient will proceed to the ED for further evaluation
[2017-08-21 20:28] VITALS: BMI 24.5
[2017-08-21 21:09] LABS: BASO % 0.4 % (0-2.0); EOS % 3.8 % (0-4.5); HEMATOCRIT 37.1 % (32.4-45.2); HEMOGLOBIN 12.5 GM/dL (10.7-15.3); LYMPH % 23.2 % (8-40); MCH 28.1 pg (25.7-33.7); MCHC 33.7 g/dl (32.0-36.0); MEAN CELL VOLUME 83.5 fl (80-96); MEAN PLT VOLUME 10.2 fl (7.5-11.1); NEUT % 63.6 % (42.8-82.8); PLATELET COUNT 171 K/MM3 (134-434); RBC 4.44 M/mm3 (3.60-5.2); RDW 15.3 % (11.6-15.6); WHITE BLOOD COUNT 4.2 K/mm3 (4.0-10.0)
[2017-08-21 21:21] LABS: INR 1.01 (0.82-1.09); PROTHROMBIN TIME (PATIENT) 11.4 SEC (9.7-13.0)
--- NOTE | 2017-08-21 21:22 | PDOC ---
History of Present Illness - General Chief Complaint: Syncope/Near Syncope Stated Complaint: FATIGUE Time Seen by Provider: 08/21/17 20:18 - History of Present Illness Initial Comments: 08/21/17 22:13 The patient is a 76 year old with a history of HTN, HLD, Breast CA, who presents for evaluation following a near syncopal episode. The patient reports two near syncopal episodes earlier today prior to presentation to the ED. She reports two episodes of extreme lightheadedness and right arm pain with a sensation that she could not rise from a seated position due to fear of passing out. She otherwise denies fevers, chills, SOB, chest pain, nausea, vomiting, abdominal pain, or changes with urination or bowel movements. Past History - Past Medical History Allergies/Adverse Reactions: Allergies Allergy/AdvReac Type Severity Reaction Status Date / Time No Known Drug Allergies Allergy Verified 08/21/17 20:28 Home Medications: Ambulatory Orders Atorvastatin Ca [Lipitor] 10 mg PO HS 01/27/17 Losartan Potassium 100 mg PO HS 01/27/17 Aspirin Coated [Ecotrin -] 81 mg PO DAILY 02/22/17 Anemia: Yes (DURING ) Asthma: No Cancer: Yes (RIGHT BREAST- 2009) Cardiac Disorders: Yes CVA: No COPD: No CHF: No Dementia: No Diabetes: No GI Disorders: No Disorders: No HTN: Yes (HOSPITALIZED 01/2017) Hypercholesterolemia: Yes Liver Disease: No Seizures: No Thyroid Disease: No - Surgical History Abdominal Surgery: Yes Appendectomy: Yes (OPEN) Cardiac Surgery: No Cholecystectomy: Yes (OPEN) Lung Surgery: No Neurologic Surgery: No Orthopedic Surgery: No - Suicide/Smoking/Psychosocial Hx Smoking Status: No Smoking History: Never smoked Have you smoked in the past 12 months: No Number of Cigarettes Smoked Daily: 0 Information on smoking cessation initiated: No Hx Alcohol Use: No Drug/Substance Use Hx: No Substance Use Type: None Hx Substance Use Treatment: No Review of Systems - Review of Systems Comments:: 08/21/17 22:23 Constitutional: No fevers, chills, fatigue, malaise HEENT: No Rhinorrhea, nasal congestion, visual changes Cardiovascular: Syncope, Lightheadedness. No chest pain, palpitations, Respiratory: No Cough, SOB, Hemoptysis, Gastrointestinal: No Abdominal pain, Nausea, Vomiting, Constipation, Diarrhea, Melena Genitourinary: No Dysuria, Frequency, Urgency, Hesitancy, Hematuria, Flank pain Musculoskeletal: No Myalgia, arthralgia Skin: No rashes, itching, bruising, pallor Neurologic: No Headache, Dizziness, Numbness, Weakness, or Tingling Psychiatric: No Hallucinations. No SI or HI *Physical Exam - Vital Signs Last Vital Signs Temp Pulse Resp BP Pulse Ox 98.4 F 98 H 18 153/108 98 08/21/17 20:21 08/21/17 20:21 08/21/17 20:21 08/21/17 20:21 08/21/17 20:21 - Physical Exam Comments: 08/21/17 22:24 General Appearance: Nourished. No Apparent Distress HEENT: EOMI, JULIA. No Pharyngeal Erythema, Tonsillar Exudate, Tonsillar Erythema Neck: No Cervical Lymphadenopathy Respiratory/Chest: Lungs Clear, Normal Breath Sounds. No Crackles, Rales, Rhonchi, Wheezing Cardiovascular: Regular Rhythm, Regular Rate. No Murmur, Gallops, Rubs Gastrointestinal/Abdominal: Normal Bowel Sounds, Soft. 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 Heart Score/ECG Review #1 ECG reviewed & interpreted by me at: 22:24 General ECG Interpretation: Sinus Rhythm, Normal Rate, Normal Intervals, No acute ischemic changes ED Treatment Course - LABORATORY CBC & Chemistry Diagram: 08/21/17 20:57 08/21/17 20:57 - ADDITIONAL ORDERS Additional order review: 08/21/17 20:57 RBC 4.44 MCV 83.5 MCHC 33.7 RDW 15.3 MPV 10.2 Neutrophils % 63.6 D Lymphocytes % 23.2 D Monocytes % 9.0 Eosinophils % 3.8 Basophils % 0.4 Medical Decision Making - Medical Decision Making 08/21/17 22:24 The patient is a 76 year old with a history of HTN, HLD, Breast CA, who presents for evaluation following a near syncopal episode. Differential includes but is not limited to: ACS, Arrhythmia, Infectious, Metabolic Derangement. Given the patient's history and physical exam, we had obtained a cbc, cmp, troponin which were unremarkable. UA demonstrates positive leuk esterase and 22 wbc consistent with a urinary tract infection. However given the patient's reported history of pre-syncopal episodes, we believe she requires tele obs admission for further monitoring. We discussed the case with the admitting team who accepted the patient for admission. *DC/Admit/Observation/Transfer Diagnosis at time of Disposition: Pre-syncope, Hypercholesterolemia, Hypokalemia HTN (hypertension) Qualifiers: Hypertension type: unspecified Qualified Code(s): I10 - Essential (primary) hypertension - Discharge Dispostion Condition at time of disposition: Stable Decision to Admit order: Yes - Referrals Referrals: Venus Akers MD [Primary Care Provider] - - Patient Instructions - Post Discharge Activity
[2017-08-21 21:24] LABS: ACTIVATED PTT 29.7 SECONDS (26.9-34.4)
[2017-08-21 21:29] LABS: ANION GAP 5 (8-16); BILIRUBIN,TOTAL 0.4 mg/dL (0.2-1.0); BLOOD UREA NITROGEN 17 mg/dL (7-18); CALCIUM 8.7 mg/dL (8.5-10.1); CHLORIDE 107 mmol/L (98-107); CO2 30 mmol/L (21-32); CREATININE 1.2 mg/dL (0.55-1.02); GLUCOSE,RANDOM 102 mg/dL (74-106); POTASSIUM 3.4 mmol/L (3.5-5.1); SGOT/AST 30 U/L (15-37); SODIUM 142 mmol/L (136-145)
[2017-08-21 21:39] LABS: ALK PHOS 87 U/L (45-117); SGPT/ALT 31 U/L (12-78)
[2017-08-21 21:53] LABS: URINE APPEARANCE CLEAR; URINE BILIRUBIN NEGATIVE (<2.0 mg/dL); URINE BLOOD NEGATIVE (NEGATIVE); URINE COLOR LTYELLOW; URINE GLUCOSE (UA) NEGATIVE (NEGATIVE); URINE KETONE NEGATIVE (NEGATIVE); URINE NITRITE NEGATIVE (NEGATIVE); URINE UROBILINOGEN NEGATIVE mg/dL (0.2-1.0)
[2017-08-21 21:57] LABS: URINE LEUK ESTERASE 3+ (NEGATIVE); URINE PROTEIN 1+ (NEGATIVE)
[2017-08-21 21:58] LABS: EPI CELLS RARE /HPF (FEW); URINE BACTERIA RARE /hpf (NONE SEEN); URINE MUCUS RARE
[2017-08-21] MEDS ORDERED: CEPHALEXIN MONOHYDRATE 500 MG CAPSULE (UD) PO ONE (22:11)
[2017-08-21] MEDS ORDERED: CEPHALEXIN MONOHYDRATE 500 MG CAPSULE (UD) ONE (22:31)
--- NOTE | 2017-08-21 22:46 | PDOC ---
Attending Attestation - Resident Resident Name: Bolivar Reyes - ED Attending Attestation I have performed the following: I have examined & evaluated the patient, The case was reviewed & discussed with the resident, I agree w/resident's findings & plan, Exceptions are as noted - HPI HPI: 08/21/17 22:46 76 yo female had chest pain,lightheadedness and rt arm pain - Physicial Exam PE: 08/21/17 22:46 slender 76 yo female in no acute distress head ncat neck no bruits lungs cta b/l cvs [id number] abd flat,nontender musculoskeletal no flank pain ext no e/c/c neuro axox3,moving all extremities psych appropriate 08/21/17 22:48 - Medical Decision Making 08/21/17 22:51 first trop is negative will admit to r/o IN -will treat UTI 08/21/17 22:51
[2017-08-22] MEDS ORDERED: PNEUMOC 13-VAL CONJ-DIP CRM/PF 0.5 ML DISP.SYRIN IM ONE (03:10)
[2017-08-22] MEDS: ACETAMINOPHEN 325 MG TABLET (FP) PO PRN (07:44)
[2017-08-22 08:09] LABS: HEMATOCRIT 33.5 % (32.4-45.2); HEMOGLOBIN 11.4 GM/dL (10.7-15.3); MCH 28.5 pg (25.7-33.7); MCHC 34.1 g/dl (32.0-36.0); MEAN CELL VOLUME 83.6 fl (80-96); MEAN PLT VOLUME 9.7 fl (7.5-11.1); PLATELET COUNT 130 K/MM3 (134-434); RBC 4.01 M/mm3 (3.60-5.2); WHITE BLOOD COUNT 3.7 K/mm3 (4.0-10.0)
[2017-08-22 08:22] LABS: CHLORIDE 108 mmol/L (98-107); POTASSIUM 3.3 mmol/L (3.5-5.1); SODIUM 142 mmol/L (136-145)
[2017-08-22 09:17] LABS: ALBUMIN 3.3 g/dl (3.4-5.0); ALK PHOS 74 U/L (45-117); ANION GAP 9 (8-16); BILIRUBIN,TOTAL 0.5 mg/dL (0.2-1.0); BLOOD UREA NITROGEN 16 mg/dL (7-18); CALCIUM 8.4 mg/dL (8.5-10.1); CO2 25 mmol/L (21-32); CREATININE 0.9 mg/dL (0.55-1.02); GLUCOSE,RANDOM 91 mg/dL (74-106); SGOT/AST 26 U/L (15-37); SGPT/ALT 25 U/L (12-78); TOT PROT 6.9 g/dl (6.4-8.2)
[2017-08-22] MEDS: ASPIRIN 81 MG CHEWABLE TABLETS PO SCH (11:05)
--- NOTE | 2017-08-22 12:17 | EKG ---
Test Reason : Blood Pressure : / mmHG Vent. Rate : 062 BPM Atrial Rate : 062 BPM P-R Int : 142 ms QRS Dur : 082 ms QT Int : 390 ms P-R-T Axes : 038 -09 058 degrees QTc Int : 395 ms NORMAL SINUS RHYTHM INFERIOR INFARCT (CITED ON OR BEFORE 27-JAN-2017) ANTERIOR INFARCT (CITED ON OR BEFORE 05-NOV-2014) ABNORMAL ECG Confirmed by MD SHANTELLE, CEASAR ([id number]) on 08/22/2017 12:17:36 PM Referred By: Confirmed By:CEASAR PEPPER MD
--- NOTE | 2017-08-22 12:38 | CONS ---
DATE OF CONSULTATION: 08/21/2017 REQUESTING PHYSICIAN: Venus Akers MD CARDIOLOGY CONSULTATION CHIEF COMPLAINT: 1. Dizziness. 2. Near syncopal episode. The patient is a 76-year-old -[place] female with long standing history of hypertension and hypercholesterolemia. Patient states that she developed sudden onset of lightheadedness/dizziness and a near syncopal episode after she suddenly got up from a sitting position and had to sit down until the symptoms abated. Patient says that she has been experiencing similar symptoms for the past few years and they usually are short-lived. She also has experienced these symptoms while she is exercising at the [facility] and at times is accompanied by unsteady gait. There is no history of diaphoresis, denies having vertigo, nausea, or vomiting. History of intermittent retrosternal chest pain, which has no relationship to exertion, it sometimes radiates to either arm, lasts several minutes and abates spontaneously. She has not had chest discomfort while involved in aerobic exercises at the [facility], but does experience some dyspnea. There is no history of paroxysmal nocturnal dyspnea or orthopnea. She occasionally has right ankle edema after standing for a prolonged period of time or at the end of the day. She complains of rare palpitations, which occur at random and at times has experienced a rapid heartbeat lasting seconds to minutes. Last episode occurred about 2 days ago. PAST HISTORY: 1. As mentioned in the history of present illness. 2. History of carcinoma of the right breast. 3. Generalized arthritis. 4. 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 SURGICAL HISTORY: 1. Status post right breast lumpectomy, followed by chemotherapy and radiation. 2. Status post hysterectomy and oophorectomy. 3. Status post cystectomy around the left kidney. 4. Status post cholecystectomy, which occurred while she was having the cystectomy. 5. Status post left cataract extraction and lens implantation. 6. History of a lumpectomy involving the left posterior chest wall. SOCIAL HISTORY: She is , is retired, has 2 sons and 2 daughters, older son is known to have coronary artery disease, status post PCI/stenting and also had abdominal aortic aneurysm resection. Other children apparently are healthy. FAMILY HISTORY: Father at age 49 of a cerebrovascular accident. Mother age 56 after sustaining a cerebrovascular accident and of pneumonia. She also had coronary artery disease and a previous myocardial infarction. There are 2 brothers and 5 sisters, both brothers are , 1 in his 40s of unknown cause, the other brother in his 60s related to complications of peripheral arterial disease. Sisters are alive. One of them has peripheral arterial disease. She has 5 step sisters, 1 step brother from her father's side. The brother apparently of carcinoma. ALLERGIES: None reported. MEDICATIONS: 1. Losartan 100 mg p.o. daily. 2. Atorvastatin 10 mg p.o. daily. 3. Amlodipine 10 mg p.o. daily. 4. Aspirin 81 mg p.o. daily. 5. Potassium supplements 10 mEq p.o. daily. 6. Extra Strength Tylenol on a p.r.n. basis. 7. Ibuprofen 1 p.o. p.r.n. REVIEW OF SYSTEMS: Constitutional: No history of chills, cough, fever or night sweats. No history of weight loss. HEENT: No history of headaches, diplopia or blurred vision, no history of epistaxis or hoarseness. Denies having pain. There is history of dizziness as mentioned in the history of present illness. Cardiovascular: See history of present illness. Respiratory: No history of cough, expectoration of hemoptysis. Was told to have a positive PPD in the 60s. Gastrointestinal: History of occasional sharp transient abdominal pain, which has no relationship to food. Her appetite is good. She has had no nausea, vomiting or change in bowel habits. Takes a lot of fiber and vegetables. Neurologic: See history of present illness. No history of seizures. History of intermittent tremors involving the left hand. Musculoskeletal: History of generalized arthralgias, no history of myalgias. Endocrine: No history of polyuria or polydipsia. No history of intolerance to cold or warm weather. Genitourinary: Patient says she was diagnosed to have a urinary tract infection, denies having dysuria, frequency or hematuria. Hematologic: No history of anemia, ecchymosis or bleeding. PHYSICAL EXAMINATION: General: A 76-year-old alert and coherent female in no acute distress, no pallor, cyanosis, clubbing or jaundice. Vitals: Blood pressure on admission was 153/108 mmHg. Pulse was 98 beats per minute and regular. Temperature was 98.4 degrees Fahrenheit. Respirations were 18 per minute and regular. Neck: Supple, no jugular venous distention, carotids are 2+, upstrokes were normal, no bruits were heard and no thyromegaly was present. Heart: PMI was in the 5th intercostal space, no heaves or thrills, S1 and S2 were normal, no murmur or gallops were heard. Lungs: Clear on auscultation. Abdomen: Soft, protuberant, nontender, no hepatosplenomegaly or palpable masses were felt. There was no rebound tenderness. Bowel sounds were present. No bruits were heard. Extremities: No calf tenderness or dependent edema, femoral pulses were 2+, posterior tibial pulses could not be palpated. Dorsalis pedis pulses were 1+. LABORATORY DATA: CBC August 22, 2017: WBC count 3700. Hemoglobin was 11.4 g. Platelet count was 130,000. On admission, platelet count was 171,000 and WBC was 4200. Chemistry: August 22, sodium 142, potassium 3.3, chloride 108, CO2 25 mmol/L. BUN 16, creatinine 0.9 mg/dL. Random glucose 91 mg/dL. Normal liver function test. CK was 318. Troponins were 0.02 and 0.02 respectively. Urinalysis has to be 1+ protein and 3+ leukocyte esterase with rare epithelial cells, bacteria and mucus. There were 22 WBC counts and 4 RBCs. X-ray chest August 21, 2017 impression: No significant interval change or acute lung disease is present. 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 IMPRESSION: 1. History of recurring lightheadedness/dizziness accompanied by near sync opal episode etiology: A. Postural hypotension needs to be excluded. B. Related to cerebrovascular disease. C. Vertigo needs exclusion. 2. Hypertension, hypertensive cardiovascular disease. 3. Hypercholesterolemia. 4. Peripheral neuropathy, secondary to chemotherapy. 5. Urinary tract infection. 6. History of palpitations most likely related to arrhythmias, type to be determined. 7. Status post right breast lumpectomy. 8. History of intermittent tremors of the left hand, etiology to be determined. RECOMMENDATIONS: 1. Check blood pressure supine and standing. 2. Dose of amlodipine needs to be decreased and could be substituted by low-dose beta-gia. 3. Holter monitor which could be done as an outpatient. 4. ECG. Prognosis guarded. Thank you for your referral. Justin CANALES/[id number] cc: Venus Akers MD
--- NOTE | 2017-08-22 13:15 | HP ---
DATE OF ADMISSION: DATE OF DICTATION: 08/22/2017 This is a 76-year-old female who came to the emergency room yesterday with some chest pain, some shoulder pain and non-specific complaints. She was also feeling dizzy sometimes. The ER thought the patient needed to be admitted for rule out myocardial infarction and she was admitted. She had been admitted to [facility] on January 27, 2017 with similar complaints. At that time, her LV size and function were normal. An [place] was ruled out. She takes amlodipine for her blood pressure. She is also known to have osteoarthritis and is on Mobic 50 mg daily. PHYSICAL EXAMINATION: General: Today, she is comfortable in bed with no complaints. Vital Signs: BP is 140/80, pulse 72, respirations 20, temperature 98. HEENT: Unremarkable. Neck: Supple. No JVD. Lungs: Clear. Heart: S1, S2 normal. No S3, S4. Abdomen: Soft. Extremities: She has no leg edema. Neurologic: Examination grossly normal. LABS: Her labs are unremarkable. EKG: To be evaluated. IMPRESSION: Atypical chest pain; rule out myocardial infarction. PLAN: Cardiology consult. We will discuss further plans with Cardiology. Justin [id number]
[2017-08-22] MEDS: POTASSIUM CHLORIDE TABS 20 MEQ TABLET.ER (FP) PO SCH ×3 (15:04→21:37)
[2017-08-22] MEDS: HYDROCHLOROTHIAZIDE 25 MG TABLET (FP) PO SCH (15:04)
[2017-08-22] MEDS ORDERED: LOSARTAN POTASSIUM 50 MG TABLET (FP) PO SCH (22:00)
[2017-08-22] MEDS ORDERED: amLODIPine BESYLATE 10 MG TABLET (FP) PO SCH (22:00)
[2017-08-22] MEDS ORDERED: ATORVASTATIN CA 10 MG TABLET (FP) PO SCH (22:00)
[2017-08-23] MEDS: ACETAMINOPHEN 325 MG TABLET (FP) PO PRN (00:59)
--- NOTE | 2017-08-23 09:15 | DS ---
Physical Examination Vital Signs: Vital Signs Temperature 98.6 F 08/23/17 05:00 Pulse Rate 63 08/23/17 05:00 Respiratory Rate 15 08/23/17 05:00 Blood Pressure 124/76 08/23/17 05:00 O2 Sat by Pulse Oximetry (%) 100 08/22/17 20:00 Findings/Remarks: Dr Huang cardiology consult appreciated No chest pain or dizziness [place] ruled out Constitutional: Yes: No Distress Eyes: Yes: WNL HENT: Yes: WNL, Tonsillar Exudate Neck: Yes: WNL Cardiovascular: Yes: WNL Respiratory: Yes: WNL Gastrointestinal: Yes: WNL ...Rectal Exam: Yes: Deferred Renal/: Yes: WNL Breast(s): Yes: WNL Musculoskeletal: Yes: WNL Edema: No Peripheral Pulses WNL: Yes Neurological: Yes: Alert ...Motor Strength: WNL Psychiatric: Yes: Alert Labs: CBC, BMP 08/22/17 07:30 08/22/17 07:30 Discharge Summary Reason For Visit: HYPERCHOLESTEROLEMIA,PRE SYNCOPE,HYPERTENSION, Current Active Problems HTN (hypertension) (Acute) Hypercholesterolemia (Acute) Hypokalemia (Acute) Pre-syncope (Acute) Condition: Stable - Instructions Referrals: Venus Akers MD [Primary Care Provider] - - Home Medications Comprehensive Discharge Medication List: Ambulatory Orders Atorvastatin Ca [Lipitor] 10 mg PO HS 01/27/17 Losartan Potassium 100 mg PO HS 01/27/17 Aspirin Coated [Ecotrin -] 81 mg PO DAILY 02/22/17 Acetaminophen [Tylenol Extra Strength] 500 mg PO BID PRN 08/22/17 Amlodipine Besylate [Norvasc -] 10 mg PO HS 08/22/17 Ibuprofen [Motrin -] 800 mg PO BID PRN 08/22/17 Meloxicam 08/22/17 Potassium Chloride [K-Dur -] 10 meq PO DAILY PRN 08/22/17
[2017-08-23] MEDS: HYDROCHLOROTHIAZIDE 25 MG TABLET (FP) PO SCH (09:37)
[2017-08-23] MEDS: ASPIRIN 81 MG CHEWABLE TABLETS PO SCH (09:37)
[2017-08-23 09:51] VITALS: BP 115/74; PULSE 68; TEMP 98
== END 2017-08-23 11:47 | disposition home or self-care (01) ==
LOC: JER 20:09 → JERBED 22:11 → J4W 08-22 02:53 → OBSVTOIN 08-23 09:13 → INTOOBSV 08-23 09:13
PROVIDERS: ADMIT Internal Medicine; ATTEND Internal Medicine
DX: R55 Syncope and collapse (principal); E78.5 Hyperlipidemia, unspecified; E87.6 Hypokalemia; I10 Essential (primary) hypertension; G62.9 Polyneuropathy, unspecified; Z85.3 Personal history of malignant neoplasm of breast; Z79.82 Long term (current) use of aspirin; R07.89 Other chest pain; Z92.21 Personal history of antineoplastic chemotherapy
CPT/HCPCS: 36415; 70450-TC; 71045-TC-FY; 80053; 81003; 81015; 82550; 82553; 84484; 85025; 85027; 85610; 85730; 93005; 93010; 99283-25; G0378